=== PATIENT | female | born 1950 | race Caucasian/White ===

== ENCOUNTER 2017-02-27 17:52 | Emergency (ER) | payer MEDICARE | END 2017-02-27 19:38 | disposition left against medical advice (07) | LOC: ERS 17:52 | DX: Z53.21 Procedure and treatment not carried out due to patient leaving prior to being seen by health care provider (principal) ==

== ENCOUNTER 2018-07-08 10:00 | Emergency (ER) | payer MEDICARE ==
[2018-07-08] MEDS ORDERED: Bacitracin Zinc 1 Packet ONE (10:15)
== END 2018-07-08 10:25 | disposition home or self-care (01) ==
LOC: SCSER 10:00
DX: S51.811A Laceration without foreign body of right forearm, initial encounter (principal); E78.5 Hyperlipidemia, unspecified; E03.9 Hypothyroidism, unspecified; X58.XXXA Exposure to other specified factors, initial encounter
CPT/HCPCS: 99283